=== PATIENT | female | born 1960 | race Caucasian/White ===

== ENCOUNTER 2025-08-13 16:11 | Inpatient (IN) | payer MEDICARE, MEDICAID ==
[~2025-08-13] VITALS: Ht 157.5 cm; Wt 60.8 kg
[2025-08-13 16:30] VITALS: O2SAT 100
[2025-08-13] MEDS: PIPERACILLIN/TAZO 3.375G/50ML 50 ML IV ONE (18:09)
[2025-08-13] MEDS: SODIUM CHLORIDE 0.9% (SEPSIS BOLUS) IV ONE (18:09)
[2025-08-13 18:26] LABS: BASOPHILS % 0.4 % (0.0-2.0); EOSINOPHILS % 0.0 % (0.0-5.0); HEMATOCRIT. 47.7 % (36.0-48.0); HEMOGLOBIN. 15.1 g/dL (12.0-16.0); LYMPHOCYTES % 32.3 % (20.0-50.0); MEAN PLATELET VOLUME 11.6 fl (7.4-10.4); MONOCYTES % 7.6 % (2.0-8.0); NEUTROPHILS % 59.7 % (40.0-76.0); PLATELET 149 x1000/uL (130-400); RED BLOOD CELL COUNT 5.00 mill/uL (4.2-5.4); RED CELL DISTRIBUTION WIDTH 15.6 % (11.6-14.6)
[2025-08-13 18:39] LABS: INR 1.2
[2025-08-13 18:42] LABS: CREATININE 1.4 mg/dL (0.6-1.0); UREA NITROGEN BLOOD 24 mg/dL (9-23)
[2025-08-13 18:44] LABS: ASPARTATE AMINOTRANSFERASE 26 IU/L (<34); BILIRUBIN DIRECT 0.1 mg/dL (<=3.0); BILIRUBIN TOTAL 0.3 mg/dL (0.1-1.0); PROTEIN TOTAL 7.4 g/dL (6.0-8.3)
[2025-08-13 18:48] LABS: TROPONIN I HIGH SENSITIVITY 43 ng/L (3.0-34)
[2025-08-13] MEDS: VANCOMYCIN 1G PREMIX 200 ML IV ONE (19:12)
[2025-08-13] MEDS: INSULIN REGULAR (HUMULIN R) 1000UNITS/10ML VIAL IV SCH (19:55)
[2025-08-13 20:54] LABS: TROPONIN I HIGH SENSITIVITY 45.0 ng/L (3.0-34)
[2025-08-13] MEDS ORDERED: SODIUM PHOSPHATE 15 MMOL in SODIUM CHLORIDE 0.9% 250 ML IV PRN (22:00)
[2025-08-13] MEDS ORDERED: DEXT 5%/0.9% NACL 1,000 ML IV SCH ×2 (22:00)
[2025-08-13] MEDS ORDERED: SODIUM CHLORIDE 0.9% 1,000 ML IV SCH (22:00)
[2025-08-13] MEDS ORDERED: DEXTROSE 50% WATER 50ML SYRINGE IV PRN ×2 (22:00)
[2025-08-13] MEDS ORDERED: SODIUM PHOSPHATE 15 MMOL in SODIUM CHLORIDE 0.9% 245 ML IV PRN (22:00)
[2025-08-13] MEDS ORDERED: ONDANSETRON HCL 4MG/2ML INJ IV PRN (22:00)
[2025-08-13] MEDS ORDERED: ACETAMINOPHEN 325MG TABLET PO PRN (22:00)
[2025-08-13] MEDS ORDERED: POTASSIUM CHLORIDE 40 MEQ in SODIUM CHLORIDE 0.9% 250 ML IV PRN (22:00)
[2025-08-13] MEDS ORDERED: POTASSIUM CHLORIDE 40 MEQ in SODIUM CHLORIDE 0.9% 230 ML IV PRN (22:00)
[2025-08-13] MEDS ORDERED: MAGNESIUM 2 G PREMIX 50 ML IV PRN ×2 (22:00)
[2025-08-13] MEDS ORDERED: INSULIN REGULAR 100U/100ML PMX 100 ML IV SCH ×2 (22:00→22:30)
[2025-08-13] MEDS ORDERED: KCL 20MEQ/100ML PREMIX 100 ML IV PRN (22:00)
[2025-08-13] MEDS ORDERED: BLOOD SUGAR DIAGNOSTIC STRIP TEST PRN ×2 (22:00)
[2025-08-13] MEDS ORDERED: BLOOD SUGAR DIAGNOSTIC STRIP TEST SCH (22:00)
[2025-08-13 22:11] LABS: CREATININE 1.1 mg/dL (0.6-1.0); UREA NITROGEN BLOOD 21 mg/dL (9-23)
[2025-08-13 22:13] LABS: PHOSPHORUS 3.4 mg/dL (2.5-4.9)
[2025-08-13] MEDS: INSULIN REGULAR 100U/100ML PMX 100 ML IV SCH (22:34)
[2025-08-13] MEDS: KCL 20MEQ/100ML PREMIX 100 ML IV PRN (22:36)
[2025-08-13] MEDS: SODIUM CHLORIDE 0.9% 1,000 ML IV SCH (22:41)
[2025-08-13] MEDS: BLOOD SUGAR DIAGNOSTIC STRIP TEST SCH (23:00)
[2025-08-13 23:04] LABS: BG BASE EXCESS -11.5 mmol/L (-2.0-3.0); BG CARBOXYHEMOGLOBIN 0.5 % (0.5-1.5); BG DEOXYHEMOGLOBIN 5.5 % (0.0-5.0); BG FRACTION INSPIRED OXYGEN 21; BG HCO3 ACT 13.8 mmol/L (21.0-28.0); BG METHEMOGLOBIN 0.3 % (0.5-1.5); BG OXYGEN SATURATION 94.5 % (94.0-98.0); BG OXYHEMOGLOBIN 93.7 % (94.0-98.0); BG PCO2 29.9 mmHg (32.0-45.0); BG PH 7.281 (7.350-7.450); BG PO2 81.0 mmHg (83.0-108.0); BG SAMPLE SITE RIGHT RADIAL; BG TOTAL HEMOGLOBIN 13.8 g/dL (12.0-16.0); BG VENT MODE ROOM AIR
[2025-08-13 23:12] VITALS: BP 126/67; PULSE 85; RESP 16; TEMP 37.0296
[2025-08-13 23:15] VITALS: BP 140/123; PULSE 85; RESP 21
[2025-08-13 23:30] VITALS: BP 140/126; PULSE 86; RESP 23
[2025-08-13 23:45] VITALS: PULSE 85; RESP 21
[2025-08-13 23:46] VITALS: BP 101/81; PULSE 85; RESP 22
[2025-08-14] VITALS (74 sets, daily range): BP systolic 94–163; BP diastolic 47–128; PULSE 69–86; RESP 12–29; TEMP 36.8–37; O2SAT 85–100
[2025-08-14] MEDS ORDERED: CARV3.1242 MT (00:25)
[2025-08-14] MEDS ORDERED: LOSA50TA41 MT (00:25)
[2025-08-14] MEDS ORDERED: [UNRECOGNIZED DRUG - OTHER] PO (00:25)
[2025-08-14] MEDS ORDERED: CARB-214 MT ×3 (00:25)
[2025-08-14] MEDS ORDERED: DIVA250T45 PO (00:25)
[2025-08-14] MEDS ORDERED: ASPI-1406 MT (00:25)
[2025-08-14] MEDS ORDERED: LORAZEPAM 2MG/ML UD SYRINGE IV PRN (01:00)
[2025-08-14] MEDS: DEXT 5%/0.45% NACL 1000ML 1,000 ML IV SCH (01:12)
[2025-08-14] MEDS: SODIUM CHLORIDE 0.45% 1,000 ML IV SCH (01:12)
[2025-08-14 02:04] LABS: TROPONIN I HIGH SENSITIVITY 49 ng/L (3.0-34)
[2025-08-14 05:58] LABS: CREATININE 0.9 mg/dL (0.6-1.0); UREA NITROGEN BLOOD 19 mg/dL (9-23)
[2025-08-14 06:00] LABS: PHOSPHORUS 1.5 mg/dL (2.5-4.9)
[2025-08-14 06:04] LABS: CREATININE 1.0 mg/dL (0.6-1.0); UREA NITROGEN BLOOD 20 mg/dL (9-23)
[2025-08-14 06:06] LABS: PHOSPHORUS 2.5 mg/dL (2.5-4.9)
[2025-08-14 06:37] LABS: TROPONIN I HIGH SENSITIVITY 44 ng/L (3.0-34)
[2025-08-14 07:04] LABS: CLARITY URINE TURBID (CLEAR); COLOR URINE YELLOW (YELLOW); GLUCOSE URINE 3+ (NEGATIVE); KETONES URINE 2+ (NEGATIVE); LEUKOCYTE ESTERASE URINE 2+ (NEGATIVE); NITRITE URINE NEGATIVE (NEGATIVE); OCCULT BLOOD URINE 2+ (NEGATIVE); PH URINE 5.0 (4.5-8.0); PROTEIN URINE TRACE (NEGATIVE); SPECIFIC GRAVITY URINE 1.027 (1.005-1.030); UROBILINOGEN URINE 0.2 E.U./dL (0.2-1.0)
[2025-08-14 08:03] LABS: SQUAMOUS EPITHELIAL CELL URINE 3+ /lpf (RARE/1+)
[2025-08-14 08:05] LABS: BACTERIA URINE 3+; WBC URINE 25-50 /hpf (0-2)
[2025-08-14] MEDS: ENOXAPARIN 40MG/0.4ML SYR SUBCUT SCH (09:27)
[2025-08-14] MEDS: CARVEDILOL 3.125 MG TABLET PO SCH (09:27)
[2025-08-14] MEDS: LOSARTAN 25 MG TABLET PO SCH (09:28)
[2025-08-14] MEDS: VALPROIC ACID 250MG CAPSULE PO SCH (09:28)
[2025-08-14] MEDS: CARBAMAZEPINE 200MG TABLET PO SCH (09:42)
[2025-08-14 10:25] LABS: CREATININE 0.8 mg/dL (0.6-1.0); UREA NITROGEN BLOOD 17 mg/dL (9-23)
[2025-08-14 10:27] LABS: PHOSPHORUS 1.5 mg/dL (2.5-4.9)
[2025-08-14 10:40] LABS: *AMPHETAMINES SCREEN URINE NEGATIVE (NEGATIVE); *BARBITURATES SCREEN URINE NEGATIVE (NEGATIVE); *BENZODIAZEPINES SCREEN URINE NEGATIVE (NEGATIVE); *COCAINE SCREEN URINE NEGATIVE (NEGATIVE); CANNABINOID URINE SCREEN NEGATIVE (NEGATIVE); ECSTASY MDMA SCREEN URINE NEGATIVE (NEGATIVE); METHADONE URINE SCREEN NEGATIVE (NEGATIVE); OPIATES URINE SCREEN NEGATIVE (NEGATIVE); PHENCYCLIDINE URINE SCREEN NEGATIVE (NEGATIVE)
[2025-08-14] MEDS: CLONIDINE 0.1MG TABLET PO PRN (10:49)
[2025-08-14 10:55] LABS: BASOPHILS % 0.5 % (0.0-2.0); EOSINOPHILS % 0.1 % (0.0-5.0); HEMATOCRIT. 40.5 % (36.0-48.0); HEMOGLOBIN. 12.8 g/dL (12.0-16.0); LYMPHOCYTES % 31.2 % (20.0-50.0); MEAN PLATELET VOLUME 12.4 fl (7.4-10.4); MONOCYTES % 12.2 % (2.0-8.0); NEUTROPHILS % 56.0 % (40.0-76.0); PLATELET 132 x1000/uL (130-400); RED BLOOD CELL COUNT 4.30 mill/uL (4.2-5.4); RED CELL DISTRIBUTION WIDTH 15.0 % (11.6-14.6)
[2025-08-14] MEDS: POTASSIUM PHOSPHATE 15 MMOL in DEXT 5% WATER 245 ML IV PRN (11:17)
[2025-08-14] MEDS ORDERED: DEXTROSE 50% WATER 50ML SYRINGE IV PRN (12:00)
[2025-08-14] MEDS ORDERED: CEFTRIAXONE 250 MG in DEXTROSE 5% WATER 50 ML IV SCH (12:15)
[2025-08-14] MEDS: INSULIN GLARGINE 100 UNITS/ML SUBCUT SCH (12:31)
[2025-08-14] MEDS: CEFTRIAXONE 1GM/50ML 50ML IV SCH (13:54)
[2025-08-14] MEDS: BLOOD SUGAR DIAGNOSTIC STRIP TEST SCH (17:19)
[2025-08-14] MEDS: INSULIN LISPRO 100 UNITS/ML SUBCUT SCH (17:22)
[2025-08-14 21:26] LABS: TROPONIN I HIGH SENSITIVITY 11 ng/L (3.0-34)
[2025-08-15] VITALS (62 sets, daily range): BP systolic 80–148; BP diastolic 44–123; PULSE 67–90; RESP 12–29; TEMP 36.6–36.9; O2SAT 95–99
[2025-08-15 07:12] LABS: HEMATOCRIT. 40.7 % (36.0-48.0); HEMOGLOBIN. 13.3 g/dL (12.0-16.0); MEAN PLATELET VOLUME 11.7 fl (7.4-10.4); PLATELET 115 x1000/uL (130-400); RED BLOOD CELL COUNT 4.33 mill/uL (4.2-5.4); RED CELL DISTRIBUTION WIDTH 14.7 % (11.6-14.6)
[2025-08-15 07:23] LABS: PHOSPHORUS 2.3 mg/dL (2.5-4.9)
[2025-08-15 07:26] LABS: UREA NITROGEN BLOOD 7 mg/dL (9-23)
[2025-08-15 08:10] LABS: CREATININE 0.5 mg/dL (0.6-1.0)
[2025-08-15] MEDS ORDERED: DEXTROSE 50% WATER 50ML SYRINGE IV PRN (09:15)
[2025-08-15] MEDS: CALCIUM 1250MG TABLET (500MG ELEMENTAL CALCIUM) PO SCH (09:16)
[2025-08-15] MEDS: SODIUM PHOSPHATE 15 MMOL in DEXT 5% WATER 245 ML IV NR (10:08)
[2025-08-15] MEDS ORDERED: INSULIN LISPRO 100 UNITS/ML SUBCUT SCH (12:00)
[2025-08-15] MEDS: BLOOD SUGAR DIAGNOSTIC STRIP TEST SCH (12:28)
[2025-08-15 14:12] LABS: BAND% 4.0 % (1.0-6.0); LYMPHOCYTES % MANUAL 55.0 % (20.0-60.0); MONOCYTES % MANUAL 5.0 % (2.0-8.0); NEUTROPHILS % MANUAL 36.0 % (45.0-75.0); PLATELET ESTIMATE DECREASED
[2025-08-15] MEDS: INSULIN GLARGINE 100 UNITS/ML SUBCUT SCH (21:37)
[2025-08-16] VITALS: BP 137/97; PULSE 88; RESP 19; TEMP 36.7; O2SAT 96
[2025-08-16 04:00] VITALS: BP 149/62; PULSE 82; RESP 18; TEMP 36; O2SAT 98
[2025-08-16 07:36] LABS: CREATININE 0.5 mg/dL (0.6-1.0); UREA NITROGEN BLOOD < 5 mg/dL (9-23)
[2025-08-16 07:38] LABS: PHOSPHORUS 2.6 mg/dL (2.5-4.9)
[2025-08-16 08:00] VITALS: BP 146/72; PULSE 81; RESP 18; TEMP 36.4; O2SAT 100
[2025-08-16] MEDS ORDERED: DEXTROSE 50% WATER 50ML SYRINGE IV PRN (09:15)
[2025-08-16 12:00] VITALS: BP 98/56; PULSE 79; RESP 18; TEMP 36.5; O2SAT 98
[2025-08-16] MEDS: BLOOD SUGAR DIAGNOSTIC STRIP TEST SCH (12:00)
[2025-08-16] MEDS: INSULIN LISPRO 100 UNITS/ML SUBCUT SCH (12:31)
[2025-08-16 16:00] VITALS: BP 157/80; PULSE 87; RESP 18; TEMP 36.4; O2SAT 99
[2025-08-16 16:58] VITALS: BP 157/80; PULSE 87; RESP 18; TEMP 97.5
[2025-08-16 18:21] LABS: BASOPHILS % 0.6 % (0.0-2.0); EOSINOPHILS % 1.6 % (0.0-5.0); HEMATOCRIT. 42.2 % (36.0-48.0); HEMOGLOBIN. 13.7 g/dL (12.0-16.0); LYMPHOCYTES % 32.6 % (20.0-50.0); MEAN PLATELET VOLUME 11.6 fl (7.4-10.4); MONOCYTES % 7.3 % (2.0-8.0); NEUTROPHILS % 57.9 % (40.0-76.0); PLATELET 117 x1000/uL (130-400); RED BLOOD CELL COUNT 4.61 mill/uL (4.2-5.4); RED CELL DISTRIBUTION WIDTH 14.0 % (11.6-14.6)
[2025-08-16] MEDS ORDERED: INSULIN GLARGINE 100 UNITS/ML SUBCUT SCH (22:00)
== END 2025-08-16 18:36 | disposition home health service (06) | DRG 871 ==
LOC: ER 16:11 → EDBEDREQSVC 21:40 → EDBEDREQ 21:40 → EDBEDREQTM 21:40 → ENRESERV 22:17 → MICUSO 22:58 → 8WST 08-15 23:51
PROVIDERS: ADMIT Student in an Organized Health Care Education/Training Program; ATTEND Student in an Organized Health Care Education/Training Program
DX: A41.9 Sepsis, unspecified organism (principal); E11.10 Type 2 diabetes mellitus with ketoacidosis without coma; N17.0 Acute kidney failure with tubular necrosis; I21.A1 Myocardial infarction type 2; R53.2 Functional quadriplegia; E87.0 Hyperosmolality and hypernatremia; G93.40 Encephalopathy, unspecified; N39.0 Urinary tract infection, site not specified; I69.354 Hemiplegia and hemiparesis following cerebral infarction affecting left non-dominant side; E27.8 Other specified disorders of adrenal gland; E78.5 Hyperlipidemia, unspecified; E83.39 Other disorders of phosphorus metabolism; E83.51 Hypocalcemia; E86.0 Dehydration; E87.6 Hypokalemia; E87.8 Other disorders of electrolyte and fluid balance, not elsewhere classified; I10 Essential (primary) hypertension; G40.909 Epilepsy, unspecified, not intractable, without status epilepticus; F01.50 Vascular dementia, unspecified severity, without behavioral disturbance, psychotic disturbance, mood disturbance, and anxiety; L89.156 Pressure-induced deep tissue damage of sacral region; Z74.01 Bed confinement status
CPT/HCPCS: 36415; 36600; 71045; 74176; 80048; 80051; 80076; 80305; 81003; 82010; 82375; 82805; 82962; 83036; 83605; 83735; 83930; 84100; 84145; 84484; 85025; 93005; 93970; 99291; J0696; J1650; J1815; J2543; J3373; J3480; J3490; J7030; J7060